=== PATIENT | female | born 1930 | race Caucasian/White ===

== ENCOUNTER 2019-01-27 16:21 | Inpatient (IN) | payer MEDICARE, BC ==
[~2019-01-27] VITALS: Ht 162.6 cm; Wt 47.2 kg
[2019-01-27 18:00] VITALS: BP 119/62
[2019-01-27] MEDS ORDERED: MAGNESIUM HYDROXIDE 30 ML LIQUID UDC PO PRN (18:15)
[2019-01-27] MEDS ORDERED: ASCO-375 PO (18:24)
[2019-01-27] MEDS ORDERED: CALC-555 PO (18:24)
[2019-01-27] MEDS ORDERED: BIOT1POW3 PO (18:24)
[2019-01-27] MEDS ORDERED: FAMO-132 IV (18:24)
[2019-01-27] MEDS ORDERED: LEVE500T9 IV (18:24)
[2019-01-27] MEDS ORDERED: ZINC220C8 PO (18:24)
[2019-01-27] MEDS ORDERED: AMIO200T4 PO (18:24)
[2019-01-27] MEDS ORDERED: MULT1TAB73 PO (18:24)
[2019-01-27] MEDS ORDERED: ACET-2154 PO (18:24)
[2019-01-27] MEDS ORDERED: GLUC-236 PO (18:24)
[2019-01-27] MEDS ORDERED: POLY15DR27 LEFTEYE (18:24)
[2019-01-27] MEDS ORDERED: DOCU250C14 PO (18:24)
[2019-01-27] MEDS ORDERED: MAGN400T6 PO (18:24)
[2019-01-27] MEDS ORDERED: LEVO88TA5 PO (18:24)
[2019-01-27] MEDS ORDERED: OMEG1CAP PO (18:24)
[2019-01-27] MEDS ORDERED: ACETAMINOPHEN 325 MG TABLET PO PRN (19:00)
[2019-01-27] MEDS ORDERED: POLYVINYL ALCOHOL OPHT DROPS 15 ML BOTTLE LEFTEYE PRN (19:00)
[2019-01-27 20:13] VITALS: BP 154/52
[2019-01-27] MEDS: LEVETIRACETAM 500 MG TABLET PO SCH (20:58)
[2019-01-27] MEDS ORDERED: LEVOTHYROXINE SODIUM 88 MCG TABLET PO SCH (21:00)
[2019-01-28 06:07] VITALS: BP 137/57
[2019-01-28] MEDS: LEVOTHYROXINE SODIUM 88 MCG TABLET PO SCH (06:19)
[2019-01-28 08:35] VITALS: BP 150/55
[2019-01-28] MEDS: LEVETIRACETAM 500 MG TABLET PO SCH ×2 (08:40→20:26)
[2019-01-28] MEDS: DOCUSATE SODIUM 100 MG CAPSULE PO SCH ×2 (08:40→17:04)
[2019-01-28] MEDS: ZINC SULFATE 220 MG CAPSULE PO SCH (08:40)
[2019-01-28] MEDS: MULTIVITAMINS,THERAPEUTIC TABLET PO SCH (08:40)
[2019-01-28] MEDS: CALCIUM CARB/VITAMIN D 500MG-200UNITS TABLET PO SCH ×2 (08:40→17:04)
[2019-01-28] MEDS: MAGNESIUM OXIDE 400 MG TABLET PO SCH (08:40)
[2019-01-28] MEDS: FAMOTIDINE 20 MG TABLET PO SCH ×2 (08:40→17:04)
[2019-01-28] MEDS: ASCORBIC ACID 500 MG TABLET PO SCH (08:40)
[2019-01-28] MEDS: OMEGA-3 FATTY ACIDS/FISH OIL CAPSULE PO SCH (08:40)
[2019-01-28] MEDS ORDERED: DOCUSATE SODIUM 250 MG CAPSULE PO SCH (09:00)
[2019-01-28] MEDS ORDERED: Medication Not On Formulary EA (Multivitamins (Multivitamin) 1 EACH) PO SCH (09:00)
[2019-01-28] MEDS ORDERED: AMIODARONE HCL 200 MG TABLET PO SCH (09:00)
[2019-01-28 17:32] VITALS: BP 133/47
[2019-01-28 20:28] VITALS: BP 122/36
[2019-01-29 05:23] VITALS: BP 146/50
[2019-01-29] MEDS: LEVOTHYROXINE SODIUM 88 MCG TABLET PO SCH (06:05)
[2019-01-29 06:32] LABS: BASOPHILS % (AUTO) 0.5 % (0.0-2.0); EOSINOPHILS # (AUTO) 1.2 K/uL (0.0-0.7); EOSINOPHILS % (AUTO) 16.5 % (0.0-7.0); HEMOGLOBIN 11.6 g/dL (10.9-14.3); LYMPHOCYTES # (AUTO) 1.1 K/uL (20.0-40.0); LYMPHOCYTES % (AUTO) 15.1 % (20.5-51.5); MEAN CORPUSCULAR HEMOGLOBIN 27.3 uug (24.7-32.8); MEAN CORPUSCULAR HGB CONC 32 g/dL (32.3-35.6); MEAN CORPUSCULAR VOLUME 84.1 fL (75.5-95.3); MONOCYTES # (AUTO) 1.1 K/uL (2.0-10.0); MONOCYTES % (AUTO) 14.3 % (0.0-11.0); NEUTROPHILS % (AUTO) 53.6 % (38.5-71.5); PLATELET COUNT (AUTO) 250 K/uL (179-408); RED BLOOD CELL COUNT(AUTO) 4.27 MIL/uL (3.63-4.92); WHITE BLOOD COUNT (AUTO) 7.5 K/uL (3.8-11.8)
[2019-01-29 06:56] LABS: CARBON DIOXIDE 31 mmol/L (21-32); CHLORIDE 105 mmol/L (98-107); CREATININE 0.9 mg/dL (0.6-1.3); GLUCOSE 90 mg/dL (74-106); PHOSPHOROUS 3.3 mg/dL (2.5-4.9); POTASSIUM 4.1 mmol/L (3.5-5.1); UREA NITROGEN, BLOOD 14 mg/dL (7-18)
[2019-01-29] MEDS: CALCIUM CARB/VITAMIN D 500MG-200UNITS TABLET PO SCH ×2 (09:01→18:52)
[2019-01-29] MEDS: LEVETIRACETAM 500 MG TABLET PO SCH ×2 (09:01→20:47)
[2019-01-29] MEDS: ZINC SULFATE 220 MG CAPSULE PO SCH (09:01)
[2019-01-29] MEDS: FAMOTIDINE 20 MG TABLET PO SCH (09:01)
[2019-01-29] MEDS: DOCUSATE SODIUM 100 MG CAPSULE PO SCH ×2 (09:01→18:50)
[2019-01-29] MEDS: MAGNESIUM OXIDE 400 MG TABLET PO SCH (09:01)
[2019-01-29] MEDS: ASCORBIC ACID 500 MG TABLET PO SCH (09:01)
[2019-01-29] MEDS: MULTIVITAMINS,THERAPEUTIC TABLET PO SCH (09:01)
[2019-01-29] MEDS: OMEGA-3 FATTY ACIDS/FISH OIL CAPSULE PO SCH (09:02)
[2019-01-29] MEDS: AMIODARONE HCL 200 MG TABLET PO SCH (09:53)
[2019-01-29 19:45] VITALS: BP 125/48
[2019-01-30] MEDS: LEVOTHYROXINE SODIUM 88 MCG TABLET PO SCH (06:31)
[2019-01-30 07:18] VITALS: BP 137/54
[2019-01-30] MEDS: OMEGA-3 FATTY ACIDS/FISH OIL CAPSULE PO SCH (09:18)
[2019-01-30] MEDS: CALCIUM CARB/VITAMIN D 500MG-200UNITS TABLET PO SCH ×2 (09:18→17:30)
[2019-01-30] MEDS: ZINC SULFATE 220 MG CAPSULE PO SCH (09:20)
[2019-01-30] MEDS: DOCUSATE SODIUM 100 MG CAPSULE PO SCH ×2 (09:21→17:30)
[2019-01-30] MEDS: FAMOTIDINE 20 MG TABLET PO SCH (09:21)
[2019-01-30] MEDS: ASCORBIC ACID 500 MG TABLET PO SCH (09:21)
[2019-01-30] MEDS: MAGNESIUM OXIDE 400 MG TABLET PO SCH (09:21)
[2019-01-30] MEDS: MULTIVITAMINS,THERAPEUTIC TABLET PO SCH (09:21)
[2019-01-30] MEDS: LEVETIRACETAM 500 MG TABLET PO SCH ×2 (09:21→20:22)
[2019-01-30 19:45] VITALS: BP 128/43
[2019-01-31 05:51] VITALS: BP 142/58
[2019-01-31] MEDS: LEVOTHYROXINE SODIUM 88 MCG TABLET PO SCH (06:39)
[2019-01-31] MEDS: MAGNESIUM OXIDE 400 MG TABLET PO SCH (08:11)
[2019-01-31] MEDS: CALCIUM CARB/VITAMIN D 500MG-200UNITS TABLET PO SCH ×2 (08:11→16:19)
[2019-01-31] MEDS: OMEGA-3 FATTY ACIDS/FISH OIL CAPSULE PO SCH (08:11)
[2019-01-31] MEDS: LEVETIRACETAM 500 MG TABLET PO SCH ×2 (08:12→20:38)
[2019-01-31] MEDS: ZINC SULFATE 220 MG CAPSULE PO SCH (08:12)
[2019-01-31] MEDS: DOCUSATE SODIUM 100 MG CAPSULE PO SCH ×2 (08:12→16:19)
[2019-01-31] MEDS: FAMOTIDINE 20 MG TABLET PO SCH (08:12)
[2019-01-31] MEDS: MULTIVITAMINS,THERAPEUTIC TABLET PO SCH (08:12)
[2019-01-31] MEDS: ASCORBIC ACID 500 MG TABLET PO SCH (08:12)
[2019-01-31 08:30] VITALS: BP 132/55
[2019-01-31 16:09] VITALS: BP 146/53
[2019-01-31 19:51] VITALS: BP 128/57
[2019-02-01 05:22] VITALS: BP 135/53
[2019-02-01] MEDS: LEVOTHYROXINE SODIUM 88 MCG TABLET PO SCH (06:07)
[2019-02-01 08:30] VITALS: BP 118/44
[2019-02-01] MEDS: ASCORBIC ACID 500 MG TABLET PO SCH (08:42)
[2019-02-01] MEDS: CALCIUM CARB/VITAMIN D 500MG-200UNITS TABLET PO SCH ×2 (08:42→17:23)
[2019-02-01] MEDS: ZINC SULFATE 220 MG CAPSULE PO SCH (08:42)
[2019-02-01] MEDS: OMEGA-3 FATTY ACIDS/FISH OIL CAPSULE PO SCH (08:42)
[2019-02-01] MEDS: FAMOTIDINE 20 MG TABLET PO SCH (08:42)
[2019-02-01] MEDS: LEVETIRACETAM 500 MG TABLET PO SCH ×2 (08:42→20:37)
[2019-02-01] MEDS: MAGNESIUM OXIDE 400 MG TABLET PO SCH (08:42)
[2019-02-01] MEDS: DOCUSATE SODIUM 100 MG CAPSULE PO SCH ×2 (08:42→17:23)
[2019-02-01] MEDS: MULTIVITAMINS,THERAPEUTIC TABLET PO SCH (08:42)
[2019-02-01] MEDS: AMIODARONE HCL 200 MG TABLET PO SCH (08:44)
[2019-02-01 16:33] VITALS: BP_SYST 150; BP_DIAS 57; BP_DIAS 77
[2019-02-01 20:00] VITALS: BP 108/57
[2019-02-02] MEDS: LEVOTHYROXINE SODIUM 88 MCG TABLET PO SCH (06:25)
[2019-02-02 06:26] VITALS: BP 134/68
[2019-02-02] MEDS: DOCUSATE SODIUM 100 MG CAPSULE PO SCH ×2 (08:28→16:45)
[2019-02-02] MEDS: ZINC SULFATE 220 MG CAPSULE PO SCH (08:28)
[2019-02-02] MEDS: LEVETIRACETAM 500 MG TABLET PO SCH ×2 (08:28→20:14)
[2019-02-02] MEDS: ASCORBIC ACID 500 MG TABLET PO SCH (08:28)
[2019-02-02] MEDS: MULTIVITAMINS,THERAPEUTIC TABLET PO SCH (08:28)
[2019-02-02] MEDS: OMEGA-3 FATTY ACIDS/FISH OIL CAPSULE PO SCH (08:28)
[2019-02-02] MEDS: CALCIUM CARB/VITAMIN D 500MG-200UNITS TABLET PO SCH ×2 (08:28→16:45)
[2019-02-02] MEDS: FAMOTIDINE 20 MG TABLET PO SCH (08:28)
[2019-02-02] MEDS: MAGNESIUM OXIDE 400 MG TABLET PO SCH (08:28)
[2019-02-02 09:23] VITALS: BP 129/45
[2019-02-02 16:00] VITALS: BP 129/41
[2019-02-02 19:36] VITALS: BP 131/50
[2019-02-03] MEDS: LEVOTHYROXINE SODIUM 88 MCG TABLET PO SCH (06:08)
[2019-02-03 06:27] VITALS: BP 141/62
[2019-02-03] MEDS: ZINC SULFATE 220 MG CAPSULE PO SCH (08:38)
[2019-02-03] MEDS: DOCUSATE SODIUM 100 MG CAPSULE PO SCH ×2 (08:39→16:52)
[2019-02-03] MEDS: FAMOTIDINE 20 MG TABLET PO SCH (08:39)
[2019-02-03] MEDS: MULTIVITAMINS,THERAPEUTIC TABLET PO SCH (08:39)
[2019-02-03] MEDS: LEVETIRACETAM 500 MG TABLET PO SCH ×2 (08:39→20:21)
[2019-02-03] MEDS: ASCORBIC ACID 500 MG TABLET PO SCH (08:39)
[2019-02-03] MEDS: MAGNESIUM OXIDE 400 MG TABLET PO SCH (08:40)
[2019-02-03] MEDS: CALCIUM CARB/VITAMIN D 500MG-200UNITS TABLET PO SCH ×2 (08:40→16:52)
[2019-02-03] MEDS: OMEGA-3 FATTY ACIDS/FISH OIL CAPSULE PO SCH (08:40)
[2019-02-03] MEDS: AMIODARONE HCL 200 MG TABLET PO SCH (08:41)
[2019-02-03 09:00] VITALS: BP 129/42
[2019-02-03 17:00] VITALS: BP 135/65
[2019-02-03 20:32] VITALS: BP 139/40
[2019-02-04] MEDS: LEVOTHYROXINE SODIUM 88 MCG TABLET PO SCH (06:04)
[2019-02-04 06:05] VITALS: BP 156/60
[2019-02-04] MEDS: LEVETIRACETAM 500 MG TABLET PO SCH ×2 (08:19→21:01)
[2019-02-04] MEDS: ZINC SULFATE 220 MG CAPSULE PO SCH (08:19)
[2019-02-04] MEDS: MAGNESIUM OXIDE 400 MG TABLET PO SCH (08:19)
[2019-02-04] MEDS: DOCUSATE SODIUM 100 MG CAPSULE PO SCH ×2 (08:20→18:24)
[2019-02-04] MEDS: FAMOTIDINE 20 MG TABLET PO SCH (08:20)
[2019-02-04] MEDS: OMEGA-3 FATTY ACIDS/FISH OIL CAPSULE PO SCH (08:20)
[2019-02-04] MEDS: CALCIUM CARB/VITAMIN D 500MG-200UNITS TABLET PO SCH ×2 (08:20→18:23)
[2019-02-04] MEDS: MULTIVITAMINS,THERAPEUTIC TABLET PO SCH (08:20)
[2019-02-04] MEDS: ASCORBIC ACID 500 MG TABLET PO SCH (08:20)
[2019-02-04 20:14] VITALS: BP 107/56
[2019-02-05 05:43] VITALS: BP 116/53
[2019-02-05] MEDS: LEVOTHYROXINE SODIUM 88 MCG TABLET PO SCH (06:36)
[2019-02-05] MEDS: DOCUSATE SODIUM 100 MG CAPSULE PO SCH ×2 (09:53→17:00)
[2019-02-05] MEDS: LEVETIRACETAM 500 MG TABLET PO SCH ×2 (09:54→20:26)
[2019-02-05] MEDS: FAMOTIDINE 20 MG TABLET PO SCH (09:54)
[2019-02-05] MEDS: MULTIVITAMINS,THERAPEUTIC TABLET PO SCH (09:54)
[2019-02-05] MEDS: ZINC SULFATE 220 MG CAPSULE PO SCH (09:54)
[2019-02-05] MEDS: ASCORBIC ACID 500 MG TABLET PO SCH (09:55)
[2019-02-05] MEDS: OMEGA-3 FATTY ACIDS/FISH OIL CAPSULE PO SCH (09:55)
[2019-02-05] MEDS: MAGNESIUM OXIDE 400 MG TABLET PO SCH (09:55)
[2019-02-05] MEDS: CALCIUM CARB/VITAMIN D 500MG-200UNITS TABLET PO SCH ×2 (09:56→17:27)
[2019-02-05] MEDS: AMIODARONE HCL 200 MG TABLET PO SCH (09:58)
[2019-02-05 19:53] VITALS: BP 140/70
[2019-02-06 06:08] VITALS: BP 145/49
[2019-02-06] MEDS: LEVOTHYROXINE SODIUM 88 MCG TABLET PO SCH (06:24)
[2019-02-06] MEDS: FAMOTIDINE 20 MG TABLET PO SCH (09:15)
[2019-02-06] MEDS: DOCUSATE SODIUM 100 MG CAPSULE PO SCH (09:15)
[2019-02-06] MEDS: MULTIVITAMINS,THERAPEUTIC TABLET PO SCH (09:15)
[2019-02-06] MEDS: ZINC SULFATE 220 MG CAPSULE PO SCH (09:15)
[2019-02-06] MEDS: LEVETIRACETAM 500 MG TABLET PO SCH (09:16)
[2019-02-06] MEDS: ASCORBIC ACID 500 MG TABLET PO SCH (09:16)
[2019-02-06] MEDS: MAGNESIUM OXIDE 400 MG TABLET PO SCH (09:16)
[2019-02-06] MEDS: CALCIUM CARB/VITAMIN D 500MG-200UNITS TABLET PO SCH (09:17)
[2019-02-06] MEDS: OMEGA-3 FATTY ACIDS/FISH OIL CAPSULE PO SCH (09:17)
== END 2019-02-06 14:20 | disposition home health service (06) | DRG 56 ==
PROVIDERS: ADMIT Physical Medicine & Rehabilitation Pain Medicine; ATTEND Physical Medicine & Rehabilitation Pain Medicine
DX: I69.120 Aphasia following nontraumatic intracerebral hemorrhage (principal); E43 Unspecified severe protein-calorie malnutrition; G93.49 Other encephalopathy; I69.198 Other sequelae of nontraumatic intracerebral hemorrhage; E03.9 Hypothyroidism, unspecified; I48.91 Unspecified atrial fibrillation; F80.2 Mixed receptive-expressive language disorder; I48.0 Paroxysmal atrial fibrillation; I10 Essential (primary) hypertension; K59.00 Constipation, unspecified; Z88.6 Allergy status to analgesic agent; Z88.1 Allergy status to other antibiotic agents; Z88.5 Allergy status to narcotic agent; Z88.8 Allergy status to other drugs, medicaments and biological substances
CPT/HCPCS: 36415; 70030-TC; 83735; 84100; 84443; 85025; 92507; 92523; 97110; 97112; 97116; 97165; 97530; 97535